=== PATIENT | female | born 1995 | race Two or more races ===

== ENCOUNTER 2024-09-13 21:42 | Emergency (ER) | payer OTHER | END 2024-09-13 23:19 | disposition home or self-care (01) | LOC: BURERS 21:42 | DX: S82.62XA Displaced fracture of lateral malleolus of left fibula, initial encounter for closed fracture (principal); W01.0XXA Fall on same level from slipping, tripping and stumbling without subsequent striking against object, initial encounter; Y93.9 Activity, unspecified | CPT/HCPCS: 29515; 99283 ==